=== PATIENT | male | born 1980 | race Caucasian/White ===

== ENCOUNTER 2025-02-05 10:32 | Outpatient (AMB) | payer OTHER, SELFPAY ==
--- NOTE | 2025-02-05 10:37 | A.OFFPC_ITS ---
Vital Signs 02/05/25 10:47 Height 5 ft 10.08 in Weight 107.955 kg BMI 34.1 BP 118/82 Respiration 16 Pulse 81 Pulse Source Pulse Oximeter Temp 98.2 F Temp Source Temporal Artery Scan Pulse Oximetry (%) 98 Oxygen Delivery Method Room Air Intake Visit Reasons: New Patient Charge Entry Specialist Required: Yes Charge Entry Specialist Name: Vangie Accompanied by: Spouse Allergies No Known Allergies Allergy (Verified 02/05/25 10:43) Medication List - Last Reconciled 02/05/25 by PIO Pineda No Known Home Meds Tobacco use date assessed: 02/05/25 Dental Screening Dental Screen Date: 02/05/25 Did you have a dental visit in the last 12 months?: Yes Did you have a dental problem in the last 6 months where you did not have access to dental care?: No Was dental information given to patient?: No HPI HPI Comments History of Present Illness Details 44 year old male without any significant past medical history presents to the office today accompanied by his , Shanae, to establish care and for annual physical exam. Lives at home with and 2 children. 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 Very occasional alcohol use. No cigarette smoking. No drugs including marijuana. He is following a healthy diet most of the time and does not exercise except for walking. Recently moved to the [facility] from [place] within the last year. Palestinian interpretor use during visit- Brittany [id number] Obesity-BMI 34.1 Concerns: Numbness/tingling in the 1st 3 fingers of the right hand ongoing for about 1.5 years. Reports in [place], was told he has carpal tunnel syndrome. States this occurs at night as well as when driving. There is also some pain. He does have full range of motion of the wrist Bilateral trigger fingers-left hand 2nd-4th fingers, right hand-2nd finger. There is some mild pain in the MCP and PIP joints Health Maintenance: Colonoscopies to start at age 45 Has been to the eye doctor Has been to dentist once for root canal Reviewed past medical, surgical, family, social history ROS: General: No fevers, malaise, unintentional weight loss HEENT: No blurred vision, diplopia. No sore throat, nasal congestion, rhinorrhea, sinus pain, ear pain. No hearing loss Neck - no adenopathy Cardiovascular: No chest pain, palpitations, or leg edema Respiratory: No shortness of breath, wheezing, cough GI: No dysphagia, odynophagia, globus sensation. No abdominal pain, nausea, vomiting, diarrhea, constipation, melena, hematochezia : No dysuria, hematuria, increased urinary frequency, decreased urinary output. No testicular swelling or pain. No penile discharge MSK: No myalgia, back pain, arthralgias. See HPI Neuro: No headaches, weakness, paresthesias Psych: no depression/anxiery. No AH/VH. No SI/HI Skin: No rashes or lesions EXAM: Constitutional - Awake and Alert, No apparent distress Eyes - PERRLA, EOMI. Anicteric Ears - external ears normal, canals clear, TMs intact and pearly childs with good cone of light Nose- septum midline, nares clear, no sinus tenderness Mouth/throat- mucosa moist, tongue and uvula midline, no erythema/edema or tonsillar adenopathy. Neck-trachea midline, thyroid symmetric without palpable nodules, no adenopathy Cardiovascular - S1S2, RRR, No edema Respiratory - Normal lung expansion, Normal respiratory effort, No respiratory distress, CTA bilaterally Gastrointestinal - NT / ND; +BS; No rebound or guarding - No CVA tenderness Extremities - no calf tenderness bilaterally, no swelling Musculoskeletal - Normal inspection, normal ROM. R wrist/hand- + Tinel's test. No bony abnormality, erythema, warmth. Trigger finger noted in the right 2nd finger and left 2nd, 3rd, 4th finger with mild tenderness to palpation over the left 3rd MCP joint. Unable to fully close L fist Skin - Warm/Dry, no concerning lesions Neurological - Alert & oriented x3, CN II-XII in tact, 5/5 strength BUE and BLE, 2+ patellar reflexes, sensation intact Psychological - Appropriate affect [facility] Medical History (Updated 02/05/25 @ 12:37 by PIO Pineda) Carpal tunnel syndrome Tenosynovitis of fingers Obesity Surgical History History of surgery on lower extremity History of ankle surgery Family History Mother CAD (coronary artery disease) Diabetes Father CAD (coronary artery disease) Diabetes Social History Housing: House Patient Tobacco Use Status: Never used Tobacco e-Cigarette/Vaping Use: Never Used service: No Current occupational status: employed 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 1. Little interest or pleasure in doing things: not at all 2. Feeling down, depressed, or hopeless: not at all 3. Trouble falling or staying asleep, or sleeping too much: nearly every day 4. Feeling tired or having little energy: not at all 5. Poor appetite or overeating: several days 6. Feeling bad about yourself - or that you are a failure or have let yourself or your family down: not at all 7. Trouble concentrating on things, such as reading the newspaper or watching television: not at all 8. Moving or speaking so slowly that other people could have noticed. Or the opposite - being so fidgety or restless that you have been moving around a lot more than usual: not at all 9. Thoughts that you would be better off or of hurting yourself in some way: not at all Total score: 4 Source: Developed by Drs. Ebenezer Berger, Romy Suarez, Konrad Burk and colleagues, with an educational dorina from [employer]. Thrive Questionnaire Date Thrive assessed: 02/05/25 I am a: Patient What is your living situation today?: I have a steady place to live Within the past 12 months, did the food you bought not last and you didn't have the money to get more?: Never true Within the past 12 months, did you worry whether your food would run out before you got money to buy more?: Never true Do you have trouble paying for medicines?: No Do you have trouble getting transportation to medical appointments?: No Do you have trouble paying your heating and electricity bill?: No Do you have trouble taking care of your child, family member or friend?: No Do you have trouble with day-to-day activities such as bathing, preparing meals, shopping, managing finances, etc.?: No Are you currently unemployed and looking for a job?: No Are you interested in more education?: No Please select the resources that you would like help with: None THRIVE Score: 0 AUDIT C Alcohol Use Questionnaire (AUDIT-C) 1. How often do you have a drink containing alcohol?: Monthly or less Total Score: 1 DAVID-7 AMB Questionnaire DAVID-7 Date DAVID - 7 assessed: 02/05/25 Feeling nervous, anxious, or on edge: 0 = Not at all Not being able to stop or control worryin = Not at all Worrying too much about different things: 0 = Not at all Trouble relaxin = Not at all Being so restless that it is hard to sit still: 0 = Not at all Becoming easily annoyed or irritable: 0 = Not at all Feeling afraid as if something awful might happen: 0 = Not at all Total DAVID-7 score (0-4 normal; 5-9 mild; 10-14 moderate; 15-21 severe): 0 Source: Developed by Drs. Ebenezer Berger, Romy Suarez, Konrad Burk and colleagues, with an educational dorina from [employer]. Physical exam (Primary Care) Vital Signs: Last Vital Signs Temp 98.2 F 02/05/25 10:47 Pulse 81 02/05/25 10:47 Resp 16 02/05/25 10:47 BP 118/82 02/05/25 10:47 Pulse Ox 98 02/05/25 10:47 Oxygen Delivery Method Room Air 02/05/25 10:47 BMI result Body Mass Index 34.1 Tobacco/Smoking Status: Tobacco use Status Tobacco use date assessed 02/05/25 02/05/25 10:49 Patient Tobacco Use Status Never used Tobacco 02/05/25 10:49 e-Cigarette/Vaping Use Never Used 02/05/25 10:49 PHQ-9: PHQ-9 Score PHQ-9: Total score 4 02/05/25 11:14 Thrive Assessment: Date of Thrive Assessment Date Thrive assessed 02/05/25 02/05/25 11:02 Coding Level of Care Code New Pt Prev Care 40-64y(71071) Diagnoses Encounter for routine history and physical examination Z00.00 Obesity E66.9 Carpal tunnel syndrome G56.00 Tenosynovitis of fingers M65.949 Assessment & Plan Assessment & Plan (1) Encounter for routine history and physical examination: Code(s): Z00.00 - Encounter for general adult medical examination without abnormal findings Plan: 44-year-old male presenting for annual physical exam and to establish care. Plan as below (2) Obesity: Code(s): E66.9 - Obesity, unspecified Category: Medical Plan: Weight loss efforts advised. Recommend healthy diet lower in calories with emphasis on increased protein, fruits, vegetables and limiting refined sugars, simple carbohydrates, highly processed foods. Recommend moderate intensity exercise for at least 150 minutes weekly. (3) Carpal tunnel syndrome: Code(s): G56.00 - Carpal tunnel syndrome, unspecified upper limb Category: Medical Plan: Ibuprofen and ice as needed. He is given a wrist splint to use at nighttime. Referred to Orthopedic surgery (4) Tenosynovitis of fingers: Code(s): M65.949 - Unspecified synovitis and tenosynovitis, unspecified hand Category: Medical Plan: X-ray of the hands bilaterally ordered. Referred to Orthopedic surgery Plan Follow-up in the office in 1 year for annual physical exam. Routine screening labs as ordered below Colonoscopies to start at age 45 Continue following for annual skin exams and use sun protection Annual eye exams Wear seat belt in car Recommend regular exercise and healthy diet Orders: Orders Basic Metabolic Panel Today Z00.00 - Encounter for general adult medical examination without abnormal findings Hemoglobin A1c Today Z00.00 - Encounter for general adult medical examination without abnormal findings Complete Blood Count Auto Diff Today Z00.00 - Encounter for general adult medical examination without abnormal findings Lipid Panel Today Z00.00 - Encounter for general adult medical examination without abnormal findings Liver Panel Today Z00.00 - Encounter for general adult medical examination without abnormal findings TSH reflex Free T4 Today Z00.00 - Encounter for general adult medical examination without abnormal findings Vitamin B12 Today R20.2 - Paresthesia of skin XR Hand Bilat min 3v Today M65.949 - Unspecified synovitis and tenosynovitis, unspecified hand, M79.641 - Pain in right hand, M79.642 - Pain in left hand Referrals Orthopedics Referral G56.00 - Carpal tunnel syndrome, unspecified upper limb, M65.949 - Unspecified synovitis and tenosynovitis, unspecified hand Medications: New arm brace (Wrist Brace) As directed. Tried ibuprofen and ice. No spica 1 ea 0RF G56.01 - Carpal tunnel syndrome, right upper limb
[2025-02-05 10:47] VITALS: BP 118/82; PULSE 81; RESP 16; TEMP 36.8; O2SAT 98; BMI 34.1
--- OUTSIDE RECORDS SUMMARY | 2025-02-05 11:44 | XMS_ITS | Clinical Summary ---
Author Organization [facility] Address [address] [place] [address] Care Team Providers Care Artificial Fly Tier Name Role Phone Unavailable Primary Care Provider Unavailabl e Source Comments PLEASE NOTE, if this patient is a minor, it may be UNLAWFUL to discuss sensitive information that is contained in these records (such as FAMILY PLANNING, MENTAL HEALTH or SUBSTANCE ABUSE) with the minor patient's parent or other person without the patient's specific authorization.[facility] Allergies No known active allergies Medications diclofenac sodium (VOLTAREN) 1 % gelIndications:C arpal tunnel syndrome, unspecified laterality Apply 2 g topically 2 (two) times daily 450 g 2 Active Active Problems No known active problems Social History Tobacco Use Types Packs/Day Years Used Date Smoking Tobacco: Never Smokeless Tobacco: Never Tobacco Cessation:Counseling Given: Not Answered Alcohol Use Standard Drinks/Week Comments Not Asked 0 (1 standard drink = 0.6 oz pur e alcohol) Social Connections Answer Date Recorded Connectedness 0 02/05/2024 Financial Resource Strain Answer Date R ecorded Financial Resource Strain 0 2023 Stress Answer Date Recorded Stress 0 12/31/2023 Physical Activity Answer Date Recorded Physical Activity 0 12/31/2023 Food Insecurity Answer Date Recorded Food 0 02/02/2024 Transportation Needs Answer Date Record ed Transportation 0 12/31/2023 Housing Stability Answer Date Recorded Housing 0 12/31/2023 Safety and Environment Answer Date Meet rded Safety 0 12/31/2023 Utilities Answer Date Recorded Utilities 0 12/31/2023 Employment Answer Date Recorded Stress 0 02/05/2024 Sex and Gender Information Value Date Recorded Sex Assigned at Male 12/31/2023 7:08 AM PDT Legal Sex Male 9:16 AM PDT Gender Identity Male 12/31/2023 7:08 AM PDT Sexual Orientation Straight 12/31/2023 7: 08 AM PDT Last Filed Vital Signs Vital Sign Reading Time Taken Comments Blood Pressure 133/82 10/26/2024 9:01 AM EDT Pulse 91 10/26/2024 9:01 AM EDT Temperature 36.6 C (97.9 F) 12/31/2023 9:50 AM EDT Respiratory Rate 20 12/31/2023 9:50 AM EDT Oxygen Saturation 97% 12/31/2023 9:50 AM EDT Inhaled Oxygen Concentration - - Weight 105.7 kg (233 lb) 12/31/2023 9:50 AM EDT Height - - Body Mass Index - - Plan of Treatment Health Maintenance Due Date Last Done Comments Anxiety Screening 1982 Diabetes Screening 1982 Hepatitis B Screening 1982 Hepatitis C Screening 1982 Lipid Screening 1982 HIV Screening 1997 Imm-DTaP/Tdap/Td (1 - Tdap) 2001 Imm-Hepatitis B (1 of 3 - 19+ 3-dose series) 2 Imm-HPV (1 - 3-dose SCDM series) 2009 Alcohol and Drug Screen 05/09/2024 Depression Annual Screen 05/09/2024 [id number] ( season) 2025 Imm-Influenza (#1) 2025 Hypertension Screening (#1) 10/26/2025 Tobacco Screening 10/26/2025 10/26/2024 Insurance [place] Sub[place] Plan / Payer (Ef fective 2023-Present) Name:Álvarolydia Kyleandres Relation to Subscriber:Self Name:uGrjit Jus Payer ID:[id number] Group ID:Not on file Type:Medicaid Address: [place] [id number] HEALTH SAFETY NET DENTAL
== END 2025-02-05 11:49 | disposition home or self-care (01) ==
LOC: HO.HMCHD 10:32
PROVIDERS: PCP Physician Assistant; Visit Provider Physician Assistant
DX: Z00.00 Encounter for general adult medical examination without abnormal findings (principal); E66.9 Obesity, unspecified; G56.00 Carpal tunnel syndrome, unspecified upper limb; M65.949 Unspecified synovitis and tenosynovitis, unspecified hand

== ENCOUNTER 2025-02-05 10:32 | Outpatient (REF) | payer OTHER, SELFPAY ==
--- NOTE | ~2025-02-05 | XR_ITS ---
Exam: XR HAND 3 VIEWS BILATERAL, bilateral hand x-rays TECHNIQUE: AP, lateral, and oblique views upper extremity, bilateral hands INDICATION: M79.641 - Pain in right hand COMPARISON: None available. FINDINGS: RIGHT HAND: Ulnar variance measures -3 mm Joint spaces are preserved. There are no osteophytes. There are no erosions. No fracture is evident. No soft tissue calcifications are identified. LEFT HAND: Ulnar variance measures -4 millimeters. There is no joint space narrowing. There are no erosions. No soft tissue calcific lesions are evident. XR/XR Hand Bilat min 3v IMPRESSION: Right hand: Aside from of negative ulnar variance, unremarkable Left hand: Aside from negative ulnar variance, unremarkable Electronically signed by: David Royal MD 02/05/2025 01:32 PM EDT
[2025-02-05 12:38] LABS: MANUAL DIFF FLAG NO
[2025-02-05 12:55] LABS: Hematocrit 43.9 % (42.0-52.0); Hemoglobin 15.8 g/dl (14.0-18.0); Imm Gran Abs Auto 0.13 X10*3/uL (0.00-0.03); Imm Gran Pct Auto 1.3 % (0.0-0.4); Lymphocytes Absolute Auto 3.4 X10*3/uL (1.2-4.9); Mean Corpuscular HGB Conc 36.0 g/dl (31.0-36.0); Mean Corpuscular Hemoglobin 29.2 pg (27.0-33.0); Mean Corpuscular Volume 81.0 fL (80.0-98.0); NRBC Abs Auto 0.000 X10*3/uL (0.0-0.012); NRBC Pct Auto 0.0 /100WBC (0.0-0.2); Platelet Count 210 X10*3/uL (160-400); Red Blood Count 5.42 X10*6/uL (4.60-5.80); White Blood Count 9.7 X10*3/uL (4.8-10.8)
[2025-02-05 13:05] LABS: Total Hemoglobin (HGBA1C) 4079.2261 umol/L
[2025-02-05 13:42] LABS: Alanine Aminotransferase 87 U/L (0-40); Albumin Level 4.7 g/dL (3.5-5.0); Alkaline Phosphatase 55 U/L (39-117); Anion Gap 10 (12-20); Aspartate Amino Transferase 59 U/L (5-37); Blood Urea Nitrogen 17 mg/dL (9-16); Calcium 9.4 mg/dL (8.4-10.2); Carbon Dioxide 29 mmol/L (22-29); Chloride 107 mmol/L (96-108); Cholesterol 141 mg/dL (<200); Estimated Glomerular Filt Rate > 60; HDL Cholesterol 29 mg/dL (>40); Potassium 4.2 mmol/L (3.3-5.1); Sodium 142 mmol/L (135-145); Total Protein 7.8 g/dL (6.5-8.0); Triglycerides 239 mg/dL (<150)
[2025-02-05 13:59] LABS: Vitamin B12 622 pg/mL (200-900)
== END 2025-02-05 10:33 | disposition home or self-care (01) ==
LOC: HO.LAB 10:32
PROVIDERS: PCP Physician Assistant; Visit Provider Physician Assistant
DX: Z00.00 Encounter for general adult medical examination without abnormal findings (principal); R20.2 Paresthesia of skin; M79.641 Pain in right hand; M79.642 Pain in left hand; M65.949 Unspecified synovitis and tenosynovitis, unspecified hand; E66.9 Obesity, unspecified; G56.00 Carpal tunnel syndrome, unspecified upper limb; Z68.34 Body mass index [BMI] 34.0-34.9, adult
CPT/HCPCS: 36415; 73130; 80048; 80061; 80076; 82607; 83036; 84443; 85025; 99386

== ENCOUNTER → 2025-02-05 12:36 | Outpatient (BNV) | payer OTHER, SELFPAY | PROVIDERS: PCP Physician Assistant; Visit Provider Radiology Diagnostic Radiology | DX: M79.643 Pain in unspecified hand (principal) | CPT/HCPCS: 73130 ==

== ENCOUNTER 2025-04-09 09:07 | Outpatient (REF) | payer OTHER, SELFPAY ==
--- NOTE | ~2025-04-09 | US_ITS ---
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 TECHNIQUE: Real-time imaging of the abdominal viscera. Noninvasive ultrasound liver fibrosis assessment is performed using Victor [employer] ElastPQ point quantification shear wave elastography (pSWE) with a 5 MHz transducer. Multiple elastography samples are obtained. FINDINGS: PANCREAS: The visualized pancreatic head and body are normal in appearance. The remainder of the pancreas is obscured from visualization by the overlying bowel gas. LIVER: No focal lesion or intrahepatic biliary duct dilatation. The right lobe measures 22 cm in length. The left lobe measures 15 cm in length. There is diffuse increased echogenicity of the liver. The main portal vein is patent with a normal direction of flow and a continuous venous waveform. Shear wave elastography provides a median stiffness of 1.4 m/s (reference: normal median stiffness is 0.81 - 1.22 m/s). The IQR/median stiffness to assess sampling precision is 0.17 (reference: optimal IQR/median stiffness is under 0.3). GALLBLADDER: The gallbladder is physiologically distended without evidence of stones, sludge, polyps, wall thickening or pericholecystic fluid. COMMON BILE DUCT: Normal in caliber measuring 0.4 cm in diameter. RIGHT KIDNEY: No hydronephrosis. No renal calculi or focal parenchymal lesions. The kidney measures 13 cm in maximum dimension. FREE FLUID: None seen. US/US abdomen chowdhury w elastography IMPRESSION: 1. Hepatomegaly with changes of hepatic steatosis. 2. Elastography: In the absence of other known clinical signs, rules out compensated advanced chronic liver disease. There is statistical variability of the sampling which decreases accuracy. Electronically signed by: David Royal MD 04/09/2025 12:08 PM [facility]
== END 2025-04-09 09:08 | disposition home or self-care (01) ==
LOC: HO.US 09:07
PROVIDERS: PCP Physician Assistant; Visit Provider Physician Assistant
DX: E80.6 Other disorders of bilirubin metabolism (principal); R74.01 Elevation of levels of liver transaminase levels
CPT/HCPCS: 76705; 76981

== ENCOUNTER → 2025-04-09 09:12 | Outpatient (BNV) | payer OTHER, SELFPAY | PROVIDERS: PCP Physician Assistant; Visit Provider Radiology Diagnostic Radiology | DX: K76.0 Fatty (change of) liver, not elsewhere classified (principal); R16.0 Hepatomegaly, not elsewhere classified | CPT/HCPCS: 76705 ==

== ENCOUNTER 2025-04-19 14:33 | Outpatient (REF) | payer OTHER, SELFPAY ==
--- NOTE | 2025-04-19 14:38 | EMG_ITS ---
Chief complaint: Right hand numbness, especially at night Reason for referral: Evaluate for Carpal Tunnel Syndrome Referred by: Harvey SUERO Procedure done: Right upper extremity NCS/EMG Precautions and/or limitations: None The limb temperature was monitored continuously and remained between 32-36 degrees C during the performance of the NCS. Ulnar motor NCS was performed with moderate elbow flexion between 70-90 degrees, with across-elbow distance of 10 cm. FINDINGS: Right median motor nerve showed prolonged distal latency, normal amplitude and normal conduction velocity. Right ulnar motor nerve showed normal distal latency, normal amplitude and slow conduction velocity across elbow. Right median sensory nerve showed absent response. Right ulnar sensory nerve showed absent response. Right radial sensory nerve was within normal. Concentric needle EMG was performed in selected muscles of the right upper extremity. Study did not reveal signs of electric abnormalities as shown in the table above. IMPRESSION: 1. This is an abnormal study. 2. 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 3. 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 4. There is no electrodiagnostic evidence for brachial plexopathy or cervical radiculopathy. Thank you for your kind referral. Keya Brooke MD, YEISON Board Certified, [place] [employer] and Rehabilitation (ABPMR) Board Certified, [place] Board of Electrodiagnostic Medicine (ABEM) CODIN [id number] x 1 extremity MTDD
== END 2025-04-19 14:34 | disposition home or self-care (01) ==
LOC: HO.NEURO 14:33
PROVIDERS: PCP Physician Assistant
DX: R20.2 Paresthesia of skin (principal); R20.0 Anesthesia of skin
CPT/HCPCS: 95886; 95911

== ENCOUNTER → 2025-04-19 14:38 | Outpatient (BNV) | payer OTHER, SELFPAY | PROVIDERS: PCP Physician Assistant; Visit Provider Physical Medicine & Rehabilitation | DX: G56.03 Carpal tunnel syndrome, bilateral upper limbs (principal) | CPT/HCPCS: 95886; 95911 ==